=== PATIENT | female | born 1980 | race Caucasian/White ===

== ENCOUNTER 2019-04-23 15:02 | Inpatient (IN) ==
[2019-04-23 15:45] LABS: BASO# 0.03 X1000 (0.0-0.2); BASO% 0.2 % (0.0-0.8); EOS# 0.05 X1000 (0.0-0.7); EOS% 0.3 % (0.0-10.0); HEMATOCRIT 34.7 % (37.0-47.0); HEMOGLOBIN 11.3 g/dL (12.0-16.0); IMM GRAN# 0.03 X1000 (0.0-0.04); IMM GRAN% 0.2 % (0.0-0.5); LYMPH# 2.31 X1000 (1.2-3.4); LYMPH% 13.1 % (20.5-51.1); MCH 28.8 PG (27-31); MCHC 32.6 g/dL (33-37); MCV 88.5 FL (81-99); MONO# 1.47 X1000 (0.11-0.59); MONO% 8.3 % (1.7-9.3); MPV 9.4 FL (7.4-10.4); NEUT# 13.79 X1000 (1.4-6.5); NEUT% 77.9 % (42.2-75.2); PLT 486 X1000 (130-400); RBC 3.92 XMIL (4.2-5.4); RDW 13.9 % (11.5-14.5); WBC 17.68 X1000 (4.8-10.8)
[2019-04-23] MEDS ORDERED: NS 500 ML IV ONE (15:56)
[2019-04-23] MEDS ORDERED: MORPHINE IV ONE (15:56)
[2019-04-23] MEDS ORDERED: ZOFRAN IV ONE ×2 (15:56→19:47)
[2019-04-23 16:26] LABS: AGAP 14; ALBUMIN 4.6 g/dL (3.5-5.0); ALKALINE PHOSPHATASE 84 U/L (32-104); BUN 10 mg/dL (8-22); CALCIUM 9.3 mg/dL (8.8-10.2); CHLORIDE 101 mmol/L (98-107); COSMO 274; CREATININE 0.9 mg/dL (0.5-0.9); ESTIMATED GFR > 60; GLUCOSE 125 mg/dL (70-104); GOT 17 U/L (10-30); GPT 20 U/L (10-36); LIPASE 39 U/L (13-60); POTASSIUM 3.7 mmol/L (3.5-5.1); SODIUM 137 mmol/L (136-145); TCO2 23 mmol/L (25-35); TOTAL PROTEIN 7.5 g/dL (6.3-8.3)
[2019-04-23 16:33] LABS: BILIRUBIN URINE NEGATIVE (NEGATIVE); BLOOD URINE NEGATIVE (NEGATIVE); CLARITY CLEAR (CLEAR); COLOR YELLOW; GLUCOSE URINE NEGATIVE (NEGATIVE); KETONE URINE NEGATIVE (NEGATIVE); LEUKOCYTES URINE TRACE (NEGATIVE); NITRITE URINE NEGATIVE (NEGATIVE); PH URINE 6.5; PROTEIN URINE TRACE mg/dL (NEGATIVE); SP GRAVITY URINE 1.015; UROBILINOGEN URINE NORMAL
[2019-04-23 16:37] LABS: URINE EPITHELIAL CELLS >10 /HPF (<10)
[2019-04-23 16:38] LABS: URINE WBC <10 /HPF (<10)
[2019-04-23 16:39] LABS: URINE BACTERIA 1+ /HFP; URINE CAST NONE SEEN /LPF; URINE CRYSTAL NONE SEEN /HPF; URINE SOURCE CLEAN CATCH; URINE YEAST NONE SEEN /HPF
--- NOTE | 2019-04-23 16:51 | Diag Imaging Result Doc PS360 ---
EXAM: CT ABDOMEN/PELVIS W/O CONTRAST HISTORY: right flank pain TECHNIQUE: Routine without contrast. COMPARISON: None. FINDINGS: Evaluation of the solid visceral organs and bowel is limited by lack of enteric and IV contrast. Lung bases are unremarkable. There is no free air or bowel distention. There is hepatic steatosis. There are cholecystectomy clips. There is a small amount of fluid within the right hepatic space and paracolic gutter. More moderate free fluid is noted within the pelvis. The uterus is surgically absent. Within the midline there is a 4.4 cm mass containing at least one septation. This may represent an enlarged ovary containing a cyst or abscess. There is surrounding free fluid. A normal appendix is identified. There is no urolithiasis or hydronephrosis. Urinary bladder is incompletely distended but grossly unremarkable. Musculoskeletal structures are unremarkable. Aorta is of normal caliber. IMPRESSION: 1.4.5 septated rounded collection in the midline pelvis. Moderate adjacent fluid as well as free abdominal and moderate pelvic fluid. This likely represents an ovarian cyst or mass. Cannot exclude abscess or torsion. Recommend further evaluation with pelvic ultrasound. 2.No urolithiasis. 3.Normal appendix. 4.Status post cholecystectomy. 5.Hepatic steatosis. This report was discussed with Ad on 04/23/2019 at 4:45 PM with read back verification. This exam was performed using automated exposure control, adjustment of mA or kV according to patient size, and/or use of iterative reconstruction technique. Electronically signed by Melodie Hirsch 04/23/2019 4:48 PM
[2019-04-23] MEDS ORDERED: DILAUDID IV ONE ×2 (16:54→19:47)
[2019-04-23] MEDS ORDERED: ZOSYN 3.375 GM in NS 50 ML IV ONE (18:05)
--- NOTE | 2019-04-23 19:18 | PROVIDER DOCUMENTATION ---
This chart was entered by Jojo Glaser Scribe, acting as scribe for Thao Duong MD. HPI-Abdominal Pain/GI Problem - General Source: patient, family - History of Present Illness-ABD Nature of Presenting Problems: 38 yowf presents to the ed with c/o abdominal pain in RUQ and RLQ acute onset yesterday at 1300. pt had nausea, diaphoresis and cramping in abdomen. pt went to walk in clinic and was sent to ed. pain is intermittent sharp in nature and 10/10 Abdominal Pain Onset Location: reports: RUQ Pain Radiation: reports: RLQ Quality of Pain: reports: cramping Severity in ED: reports: severe Onset/Duration: reports: other (yesteray 1300) Timing: reports: intermittent Activities at Onset: reports: light activity Exposure to sick contacts?: No Modifying Factors: worse with: movement, palpation Associated Symptoms: reports: diaphoresis, nausea. denies: back/neck pain, chest pain, diarrhea, fever/chills, vomiting Last BM: last night Dark Stools Present?: reports: none noticed Rectal Bleeding: reports: none # of Diarrhea Episodes: 0 Rectal Pain: reports: none # of Vomiting Episodes: 0 Emesis Description: reports: none Bruising or Bleeding Gums?: No Similar Symptoms Previously?: No Recently seen or treated by another doctor?: No <Thao Duong - Last Filed: 04/23/19 19:17> <Marshall Clement - Last Filed: 04/23/19 19:46> - General Chief Complaint: Abdominal Pain Stated Complaint: SEVERE ABD PAIN Time Seen by Provider: 04/23/19 15:51 Allergies/Adverse Reactions: Patient Allergies Allergy/AdvReac Type Severity Reaction Status Date / Time sulfamethoxazole Allergy RASH Verified 04/08/16 09:36 [From Bactrim] trimethoprim [From Bactrim] Allergy RASH Verified 04/08/16 09:36 Home Medications: Home Medication List Medication Instructions Recorded Confirmed Last Taken Type Citalopram [Celexa] 20 mg PO DAILY 04/30/15 04/08/16 04/30/15 History Cephalexin [Keflex] 500 mg PO BID #14 capsule 04/08/16 Unknown Rx Levothyroxine Sodium [Synthroid] 88 mcg PO DAILY 04/08/16 04/08/16 Unknown H istory Review of Systems - Adult - REVIEW OF SYSTEMS - ADULT Constitutional: reports: no symptoms reported Eyes: reports: no symptoms reported Ears, Nose, Mouth & Throat: reports: no symptoms reported Cardiovascular: denies: chest pain, palpitations Respiratory: denies: shortness of breath, wheezing Gastrointestinal: reports: see HPI, abdominal pain, nausea. denies: diarrhea, vomiting Genitourinary: reports: no symptoms reported Musculoskeletal: denies: back pain, neck pain Integumentary: reports: no symptoms reported Neurological: denies: dizziness/vertigo, headache/migraines Psychiatric: reports: no symptoms reported Endocrine: reports: see HPI, excessive sweating Hematologic/Lymphatic: reports: no symptoms reported Allergic/Immunologic: reports: no symptoms reported All Other Systems: Reviewed and Negative <Thao Duong - Last Filed: 04/23/19 19:17> Past History - Adult - PAST MEDICAL HISTORY-ADULT Review of Records: reports: Nursing Assessment Review, Medications Reviewed Major Childhood Illnesses: reports: denies history Cardiovascular: reports: HTN Respiratory: reports: denies history Gastrointestinal: reports: denies history Obstetrical/Gynecological: reports: denies history Genitourinary: reports: denies history Musculoskeletal: reports: denies history Hand Dominance: Right Handed Neurological: reports: denies history Psychiatric: reports: depression Endocrine/Immune: reports: thyroid disorder Other Conditions: reports: denies history - PRIOR SURGERIES/PROCEDURES Surgical/Procedure History: reports: cholecystectomy, hysterectomy, BTL, tonsillectomy, other (TMJ) - IMMUNIZATION STATUS Childhood Immunizations: See Nurse Assessment Flu Vaccine: See Nurse Assessment - FAMILY HISTORY Family History: reviewed, not pertinent - SOCIAL HISTORY Smoking: denies Substance Use: denies Living Situation: family <Thao Duong - Last Filed: 04/23/19 19:17> Physical Exam-General - PHYSICAL EXAM-ADULT Initial Vital Signs Reviewed: Yes - CONSTITUTIONAL General Appearance: alert, moderate distress, obese, anxious - EYES Eyes: PERRL/EOMI, pink conjunctivae - HEAD, EARS, NOSE, MOUTH & THROAT HENMT: moist mucous membranes, normal ENT inspection - NECK Neck: non-tender, full range of motion, supple, normal inspection - RESPIRATORY Respiratory: chest non-tender, lungs clear, normal breath sounds - CARDIOVASCULAR Cardiovascular: normal peripheral pulses, tachycardia (110) - GASTROINTESTINAL (ABDOMEN) Abdominal Exam: soft, no organomegaly, no pulsatile mass, guarding, tenderness (RUQ and RLQ). negative: distended, rigid, rebound, hernia - LYMPHATIC Lymphatic: no adenopathy - MUSCULOSKELETAL Back Exam: normal inspection, no CVA tenderness, no vertebral tenderness Extremity: normal range of motion, non-tender, normal gait, normal inspection, no pedal edema, no calf tenderness, normal capillary refill - SKIN Integumentary: normal color, normal turgor, warm/dry - NEUROLOGIC Neurologic: grossly normal, no motor/sensory deficits - PSYCHIATRIC Psych/Mental Status: normal mood/affect, normal thought content, normal thought process, oriented x 3 <Thao Duong - Last Filed: 04/23/19 19:17> Progress - PLAN OF CARE/RESULTS Progress/Plan/Lab Results: Vital Signs - 8 hr 04/23/19 15:14 Temperature 98.2 F Pulse Rate 110 H Respiratory Rate 22 Blood Pressure 137/91 O2 Sat by Pulse Oximetry 100 Laboratory Results - last 24 hr 04/23/19 15:33 WBC 17.68 H RBC 3.92 L Hgb 11.3 L Hct 34.7 L MCV 88.5 MCH 28.8 MCHC 32.6 L RDW Std Deviation 13.9 Plt Count 486 H MPV 9.4 Immature Gran % (Auto) 0.2 Neut % (Auto) 77.9 H Lymph % (Auto) 13.1 L [place] % (Auto) 8.3 Eos % (Auto) 0.3 Baso % (Auto) 0.2 Immature Gran # (Auto) 0.03 Neut # (Auto) 13.79 H Lymph # (Auto) 2.31 [place] # (Auto) 1.47 H Eos # (Auto) 0.05 Baso # (Auto) 0.03 Orders Category Date Time Status Saline Loc DIRECTED Care 04/23/19 15:18 Active NPO Diet 04/23/19 15:[address] ABDOMEN/PELVIS W/O CONTRAST [CT] Stat Exams 04/23/19 15:55 Ordered AMYLASE [CHEM] Stat Lab 04/23/19 15:33 Received CBC WITH ELECTRONIC DIFF [HEME] Stat Lab 04/23/19 15:33 Completed COMPREHENSIVE METABOLIC PANEL [CHEM] Stat Lab 04/23/19 15:33 Received LIPASE [CHEM] Stat Lab 04/23/19 15:[address] W/POSS RFLX CULT [URINALYSIS] Stat Lab 04/23/19 15:57 Received 0.9% Sodium Chloride Inj [Ns] 500 ml Med 04/23/19 15:56 Active IV 999 mls/hr Morphine Med 04/23/19 15:56 Discontinued 4 mg IV NOW ONE Ondansetron [Zofran] Med 04/23/19 15:56 Discontinued 4 mg IV NOW ONE Result Diagrams: 04/23/19 15:33 04/23/19 15:33 - CHANGE OF SHIFT REPORT (ED Provider) 1 Report Given and Care Transferred to:: [facility] Time of Transfer: 19:00 Items Pending: Other (ultrasound pending, possible admission for pain control, adnexal mass) <Thao Duong - Last Filed: 04/23/19 19:17> - PLAN OF CARE/RESULTS Progress/Plan/Lab Results: Vital Signs - 8 hr 04/23/19 15:14 Temperature 98.2 F Pulse Rate 110 H Respiratory Rate 22 Blood Pressure 137/91 O2 Sat by Pulse Oximetry 100 Laboratory Results - last 24 hr 04/23/19 04/23/19 04/23/19 15:33 15:33 15:33 WBC 17.68 H RBC 3.92 L Hgb 11.3 L Hct 34.7 L MCV 88.5 MCH 28.8 MCHC 32.6 L RDW Std Deviation 13.9 Plt Count 486 H MPV 9.4 Immature Gran % (Auto) 0.2 Neut % (Auto) 77.9 H Lymph % (Auto) 13.1 L [place] % (Auto) 8.3 Eos % (Auto) 0.3 Baso % (Auto) 0.2 Immature Gran # (Auto) 0.03 Neut # (Auto) 13.79 H Lymph # (Auto) 2.31 [place] # (Auto) 1.47 H Eos # (Auto) 0.05 Baso # (Auto) 0.03 Sodium 137 Potassium 3.7 Chloride 101 Carbon Dioxide 23 L Anion Gap 14 BUN 10 Creatinine 0.9 Estimated GFR/1.73 m2 > 60 BUN/Creatinine Ratio 11 Glucose 125 H Calculated Osmolality 274 Calcium 9.3 Total Bilirubin 0.40 AST 17 ALT 20 Alkaline Phosphatase 84 Total Protein 7.5 Albumin 4.6 Globulin 3.0 Albumin/Globulin Ratio 2.0 Amylase 80 Lipase 39 Urine Source Urine Color Urine Clarity Urine pH Ur Specific [place] Urine Protein Urine Ketones Urine Blood Urine Nitrite Urine Bilirubin Urine Urobilinogen Urine Microscopic RBC Urine WBC Urine Microscopic WBC Ur Epithelial Cells Urine Crystals Urine Bacteria Urine Casts Urine Yeast Urine Glucose 04/23/19 15:57 WBC RBC Hgb Hct MCV MCH MCHC RDW Std Deviation Plt Count MPV Immature Gran % (Auto) Neut % (Auto) Lymph % (Auto) [place] % (Auto) Eos % (Auto) Baso % (Auto) Immature Gran # (Auto) Neut # (Auto) Lymph # (Auto) [place] # (Auto) Eos # (Auto) Baso # (Auto) Sodium Potassium Chloride Carbon Dioxide Anion Gap BUN Creatinine Estimated GFR/1.73 m2 BUN/Creatinine Ratio Glucose Calculated Osmolality Calcium Total Bilirubin AST ALT Alkaline Phosphatase Total Protein Albumin Globulin Albumin/Globulin Ratio Amylase Lipase Urine Source CLEAN CATCH Urine Color YELLOW Urine Clarity CLEAR Urine pH 6.5 Ur Specific [place] 1.015 Urine Protein TRACE A Urine Ketones NEGATIVE Urine Blood NEGATIVE Urine Nitrite NEGATIVE Urine Bilirubin NEGATIVE Urine Urobilinogen NORMAL Urine Microscopic RBC Not Reportable Urine WBC TRACE A Urine Microscopic WBC <10 Ur Epithelial Cells >10 A Urine Crystals NONE SEEN Urine Bacteria 1+ Urine Casts NONE SEEN Urine Yeast NONE SEEN Urine Glucose NEGATIVE Orders Category Date Time Status Saline Loc DIRECTED Care 04/23/19 15:18 Active NPO Diet 04/23/19 15:[address] ABDOMEN/PELVIS W/O CONTRAST [CT] Stat Exams 04/23/19 15:55 Completed US PELVIC NON-OB COMPLETE [US] Stat Exams 04/23/19 16:47 Completed AMYLASE [CHEM] Stat Lab 04/23/19 15:33 Completed CBC WITH ELECTRONIC DIFF [HEME] Stat Lab 04/23/19 15:33 Completed COMPREHENSIVE METABOLIC PANEL [CHEM] Stat Lab 04/23/19 15:33 Completed LIPASE [CHEM] Stat Lab 04/23/19 15:[address] W/POSS RFLX CULT [URINALYSIS] Stat Lab 04/23/19 15:57 Completed URINE CULTURE [RM] Routine Lab 04/23/19 16:39 Ordered 0.9% Sodium Chloride Inj [Ns] 500 ml Med 04/23/19 15:56 Discontinued IV 999 mls/hr Hydromorphone [Dilaudid] Med 04/23/19 16:54 Discontinued 1 mg IV NOW ONE Morphine Med 04/23/19 15:56 Discontinued 4 mg IV NOW ONE Ondansetron [Zofran] Med 04/23/19 15:56 Discontinued 4 mg IV NOW ONE Piperacillin/Tazobactam [Zosyn] 3.375 gm Med 04/23/19 18:05 Discontinued 0.9% Sodium Chloride Inj [Ns] 50 ml IV NOW Result Diagrams: 04/23/19 15:33 04/23/19 15:33 - CONSULTS/PCP/HOSPITALIST Notification #1 *Consult/PCP/Hospitalist*: Dr Zurita Time Discussed: 19:45 Consult Disposition: Will see in ED, Admit <Marshall Clement - Last Filed: 04/23/19 19:46> Departure <Thao Duong - Last Filed: 04/23/19 19:17> - Departure Date of Disposition Decision: 04/23/19 Time of Disposition Decision: 19:45 Certified Medical Emergency: Emergent - Critical Care Note This patient required my direct & personal management of CC.: Yes Total Time (mins): 35 Critical Care Statement: This patient required my direct personal management to treat or rule out processes, the absence of which, could potentiallly result in sudden, clinically significant life or limb threatening deterioration. <Marshall Clement - Last Filed: 04/23/19 19:46> - Departure DIAGNOSIS: Ovarian torsion Disposition: ADMITTED INPATIENT 09 Condition: Fair Referrals and Follow-Ups: Marcel Abrams MD [Primary Care Provider] - Attestation - Physician/ SARAI Attestation Patient care was provided by Advanced Practice Provider:: No The physician spent face to face time with patient:: Yes Advanced Practice Provider documentation review:: Supervising physician onsite and consulted in the evaluation and care of this patient. The physician did have a face to face encounter with the patient. <Thao Duong - Last Filed: 04/23/19 19:17> - Physician/ SARAI Attestation Patient care was provided by Advanced Practice Provider:: No The physician spent face to face time with patient:: Yes Advanced Practice Provider documentation review:: Supervising physician onsite and consulted in the evaluation and care of this patient. The physician did have a face to face encounter with the patient. <Marshall Clement - Last Filed: 04/23/19 19:46> This chart was documented by the indicated scribe, (Jojo Glaser Scribe) and accurately reflects the services I performed and decisions made by me, Thao Duong MD, as attested by the provider's signature.
--- NOTE | 2019-04-23 19:23 | Diag Imaging Result Doc PS360 ---
EXAM: US PELVIC NON-OB COMPLETE INDICATION: rule out ovarian torsion TECHNIQUE: COMPARISON: 12/14/2014 FINDINGS: There has been a prior hysterectomy and left oophorectomy. There is a large cyst associated with the right ovary measuring up to 4.8 cm with internal septation. The right ovary is enlarged measuring 9.2 x 8.3 x 6.0 cm. There is no appreciable Doppler flow associated with the right ovary, which is suspicious for ovarian torsion. There is a small amount of free fluid in the pelvis. IMPRESSION: Enlarged right ovary with no appreciable Doppler flow and a large ovarian cyst, which is worrisome for ovarian torsion. Electronically signed by Rodrigo Marroquin 04/23/2019 7:20 PM
[2019-04-23] MEDS: KEFZOL 2 GM/D5W 2 GM/50 ML IVPB IV ONE (20:51)
[2019-04-23] MEDS ORDERED: DIPRIVAN 1% ONE (21:20)
[2019-04-23] MEDS ORDERED: KEFZOL 2 GM/D5W 2 GM/50 ML IVPB ONE (21:23)
[2019-04-23] MEDS ORDERED: KEFZOL 1 GM/D5W 0 GM/0 ML IVPB ONE (21:23)
[2019-04-23] MEDS ORDERED: LR 1,000 ML ONE (21:23)
[2019-04-23] MEDS ORDERED: TORADOL ONE (21:29)
[2019-04-23] MEDS ORDERED: ZOFRAN ONE (21:29)
[2019-04-23] MEDS ORDERED: XYLOCAINE-MPF 2% ONE (21:29)
[2019-04-23] MEDS ORDERED: DECADRON ONE (21:29)
[2019-04-23] MEDS ORDERED: ROBINUL ONE ×3 (21:30→22:28)
[2019-04-23] MEDS ORDERED: SODIUM CHLORIDE 0.9% 10 ML ONE (21:37)
[2019-04-23] MEDS ORDERED: EPHEDRINE ONE (21:37)
[2019-04-23] MEDS ORDERED: NEO-SYNEPHRINE ONE (21:40)
[2019-04-23] MEDS ORDERED: MORPHINE ONE ×2 (22:01→22:24)
[2019-04-23] MEDS ORDERED: NEOSTIGMINE ONE (22:28)
[2019-04-23] MEDS ORDERED: ZOFRAN IV PRN (23:03)
[2019-04-23] MEDS ORDERED: MORPHINE IM PRN (23:03)
[2019-04-23] MEDS ORDERED: PHENERGAN IM PRN (23:03)
[2019-04-23] MEDS ORDERED: NORCO-10 PO PRN (23:03)
[2019-04-23] MEDS ORDERED: NORCO-5 PO PRN (23:03)
[2019-04-23] MEDS ORDERED: MOTRIN PO PRN (23:03)
[2019-04-23 23:32] LABS: BILIRUBIN URINE NEGATIVE (NEGATIVE); BLOOD URINE NEGATIVE (NEGATIVE); GLUCOSE URINE NEGATIVE (NEGATIVE); KETONE URINE TRACE mg/dL (NEGATIVE); LEUKOCYTES URINE NEGATIVE (NEGATIVE); NITRITE URINE NEGATIVE (NEGATIVE); PROTEIN URINE NEGATIVE (NEGATIVE); URINE SOURCE CATH; UROBILINOGEN URINE NORMAL
[2019-04-23 23:33] LABS: CLARITY CLEAR (CLEAR); COLOR YELLOW
[2019-04-23] MEDS: LR 1,000 ML IV SCH (23:40)
[2019-04-23 23:48] LABS: URINE BACTERIA NEGATIVE /HFP; URINE EPITHELIAL CELLS <10 /HPF (<10); URINE RBC <10 /HPF (<10); URINE WBC <10 /HPF (<10)
--- NOTE | 2019-04-23 23:54 | PROVIDER PROGRESS NOTE ---
Progress Note OPERATIVE REPORT Preoperative diagnosis: 1. Right ovarian torsion 2. Abdominal pain Post-operative diagnosis: same Procedure: mini-lapartomy/ Right salpingo-oophorectomy Attending: Sadie Zurita Assistants: none Anesthesia: General Findings: ruptured right ovarian hemorrhagic cyst, right ovarian torsion, evidence of prior hysterectomy/LSO, EBL: 100cc Complications: none Indications for the procedure: The pt is a 38 your old who presented to the ED with abdominal pain for 1 day. She had an US that showed a large ovarian cyst 9.2x8.3x6cm. There was no evidence of doppler flow to the ovary, which was suspicious for an ovarian torsion. She is consented for a mini- laparotomy/RSO. She was given the risks, benefits, and alternatives to the procedure to include but not limited to bleeding, infection, surgical menopause, injury to other organs, and risks of anesthesia. She understands and agrees to proceed. Description of Procedure: The patient was taken to the OR where her general anesthesia was found to be adequate. She was placed in the supine position. She was prepped and draped in the usual fashion. A Pfannenstiel skin incision was made with the scapel, and taken down the the underlying fascia with the Bovie. The fascia was excised in the midline and extended bilaterally, first to the patient's right, then the patient's left. The superior aspect of the fascia was grasped with Samantha clamps x2, tented up, and the rectus muscles dissected off with the Hampton scissors. In a similar fashion, the inferior aspect of the fascia was grasped with Samantha clamps, tented up, and the rectus muscles dissected off with the Hampton scissors. The muscles were divided in the midline. The peritoneum was identified, grasped with Hemostats x2, and entred sharply with the Metzenbaum scissors. There was some free fluid mixed with blood in the pelvis. The right ovarian cyst was noted to be ruptured and there was evidence of a torsion with 2 twists around the IP ligament. The O'Alexy Hernandez abdominal retractor was placed into the abdomen with its attachments, and the bowel was gently packed away with moist laparotomy sponges. The IP ligament was untwisted. The ligament was clamped with Babs clamps x2. The ovary and tube were transected and removed. The IP ligament was double suture ligated. Good hemostasis was noted. Copius irrigation was performed. The surgical site was hemostatic. The right ureter was palpated and was intact. The abdominal retractor and attachments were removed. The laparotomy sponges were removed. The peritoneum was closed with a 2.0 Chromic in a running fashion. Copius irrigation was performed and any small bleeders were cauterized with the Bovie. The fascia was closed with a 0 Vicryl in a running fashion. The subcutaneous space was copiusly irrigated. Any small bleeders were cauterized with the Bovie. The subcutaneous space was closed with a 3.0 Vicryl suture in a running fashion. The skin was closed with a 4.0 Biosyn in a subcuticular fashion. All sponge, lap, and needle counts were correct x2. The patient tolerated the procedure well and was returned the recovery room in stable condition.
[2019-04-24] MEDS ORDERED: SODIUM CHLORIDE 0.9% INJ PRN (01:27)
[2019-04-24] MEDS ORDERED: PHENERGAN IV PRN (01:27)
[2019-04-24] MEDS ORDERED: DILAUDID IV PRN (01:30)
[2019-04-24] MEDS ORDERED: BENADRYL IV PRN (01:31)
[2019-04-24] MEDS: KEFZOL 2 GM/D5W 2 GM/50 ML IVPB IV ONE (03:59)
[2019-04-24] MEDS: TORADOL IV SCH ×4 (05:19→22:05)
[2019-04-24 07:16] LABS: BASO# 0.01 X1000 (0.0-0.2); BASO% 0.1 % (0.0-0.8); EOS# 0.01 X1000 (0.0-0.7); EOS% 0.1 % (0.0-10.0); HEMATOCRIT 33.6 % (37.0-47.0); HEMOGLOBIN 10.3 g/dL (12.0-16.0); IMM GRAN# 0.03 X1000 (0.0-0.04); IMM GRAN% 0.2 % (0.0-0.5); LYMPH# 0.83 X1000 (1.2-3.4); LYMPH% 4.8 % (20.5-51.1); MCH 28.1 PG (27-31); MCHC 30.7 g/dL (33-37); MCV 91.6 FL (81-99); MONO# 1.26 X1000 (0.11-0.59); MONO% 7.2 % (1.7-9.3); NEUT# 15.29 X1000 (1.4-6.5); NEUT% 87.6 % (42.2-75.2); PLT 433 X1000 (130-400); RBC 3.67 XMIL (4.2-5.4); RDW 14.3 % (11.5-14.5); WBC 17.43 X1000 (4.8-10.8)
[2019-04-24 07:38] LABS: AGAP 10; ALBUMIN 4.1 g/dL (3.5-5.0); ALKALINE PHOSPHATASE 122 U/L (32-104); BUN 12 mg/dL (8-22); CALCIUM 9.4 mg/dL (8.8-10.2); CHLORIDE 101 mmol/L (98-107); COSMO 279; ESTIMATED GFR > 60; GLUCOSE 160 mg/dL (70-104); GOT 418 U/L (10-30); GPT 267 U/L (10-36); POTASSIUM 4.8 mmol/L (3.5-5.1); SODIUM 138 mmol/L (136-145); TCO2 27 mmol/L (25-35); TOTAL PROTEIN 6.6 g/dL (6.3-8.3)
[2019-04-24] MEDS: PERIDEX MT SCH ×2 (08:04→20:52)
[2019-04-24] MEDS: COLACE PO SCH ×2 (08:04→22:05)
[2019-04-24] MEDS: LR 1,000 ML IV SCH ×2 (08:04→16:32)
[2019-04-24 08:05] LABS: ANISOCYTOSIS 1+; LYMPHS 15 % (21-51); MONO 6 % (1-9); SEGS 79 % (42-75)
--- NOTE | 2019-04-24 09:45 | OB/GYN PROGRESS NOTE ---
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 Progress Note: Vital Signs - 24 hr 04/23/19 15:14 04/23/19 20:07 04/23/19 21:00 Temperature 98.2 F 97.1 F L Pulse Rate 110 H 71 77 Respiratory Rate 22 16 Blood Pressure 137/91 123/82 112/64 Blood Pressure [Left Arm] O2 Sat by Pulse Oximetry 100 98 97 04/23/19 23:00 04/23/19 23:05 04/23/19 23:07 Temperature 97.7 F Pulse Rate 72 77 Respiratory Rate 16 16 Blood Pressure 112/64 112/64 Blood Pressure [Left Arm] 107/66 O2 Sat by Pulse Oximetry 96 04/23/19 23:10 04/23/19 23:20 04/23/19 23:40 Temperature 98.0 F Pulse Rate 72 78 90 Respiratory Rate 16 16 18 Blood Pressure 115/59 Blood Pressure [Left Arm] 110/72 94/62 O2 Sat by Pulse Oximetry 97 94 L 98 04/23/19 23:47 04/23/19 23:49 04/24/19 00:00 Temperature 98.0 F Pulse Rate 84 89 74 Respiratory Rate 18 18 Blood Pressure 110/51 115/59 108/59 Blood Pressure [Left Arm] O2 Sat by Pulse Oximetry 99 98 100 04/24/19 00:15 04/24/19 00:30 04/24/19 01:00 Temperature Pulse Rate 82 92 H 84 Respiratory Rate 16 16 16 Blood Pressure 108/59 112/61 112/62 Blood Pressure [Left Arm] O2 Sat by Pulse Oximetry 100 100 100 04/24/19 01:30 04/24/19 02:00 04/24/19 03:00 Temperature Pulse Rate 79 82 76 Respiratory Rate 16 16 16 Blood Pressure 111/59 119/61 112/57 Blood Pressure [Left Arm] O2 Sat by Pulse Oximetry 100 100 100 04/24/19 04:00 04/24/19 04:45 04/24/19 05:00 Temperature 97.7 F Pulse Rate 85 84 Respiratory Rate 16 16 Blood Pressure 111/64 125/56 Blood Pressure [Left Arm] O2 Sat by Pulse Oximetry 100 98 100 04/24/19 07:44 04/24/19 07:50 Temperature 98 F Pulse Rate 72 68 Respiratory Rate 18 14 Blood Pressure 103/55 Blood Pressure [Left Arm] O2 Sat by Pulse Oximetry 96 100 Laboratory Results - last 24 hr 04/23/19 04/23/19 04/23/19 15:33 15:33 15:33 WBC 17.68 H RBC 3.92 L Hgb 11.3 L Hct 34.7 L MCV 88.5 MCH 28.8 MCHC 32.6 L RDW Std Deviation 13.9 Plt Count 486 H MPV 9.4 Immature Gran % (Auto) 0.2 Neut % (Auto) 77.9 H Lymph % (Auto) 13.1 L [place] % (Auto) 8.3 Eos % (Auto) 0.3 Baso % (Auto) 0.2 Immature Gran # (Auto) 0.03 Neut # (Auto) 13.79 H Lymph # (Auto) 2.31 [place] # (Auto) 1.47 H Eos # (Auto) 0.05 Baso # (Auto) 0.03 Segmented Neutrophils Lymphocytes Monocytes Anisocytosis Sodium 137 Potassium 3.7 Chloride 101 Carbon Dioxide 23 L Anion Gap 14 BUN 10 Creatinine 0.9 Estimated GFR/1.73 m2 > 60 BUN/Creatinine Ratio 11 Glucose 125 H POC Glucose Calculated Osmolality 274 Calcium 9.3 Total Bilirubin 0.40 AST 17 ALT 20 Alkaline Phosphatase 84 Total Protein 7.5 Albumin 4.6 Globulin 3.0 Albumin/Globulin Ratio 2.0 Amylase 80 Lipase 39 Urine Source Urine Color Urine Clarity Urine pH Ur Specific [place] Urine Protein Urine Ketones Urine Blood Urine Nitrite Urine Bilirubin Urine Urobilinogen Urine Microscopic RBC Urine WBC Urine Microscopic WBC Ur Epithelial Cells Urine Crystals Urine Bacteria Urine Casts Urine Yeast Urine Glucose 04/23/19 04/23/19 04/24/19 15:57 23:20 05:19 WBC 17.43 H RBC 3.67 L Hgb 10.3 L Hct 33.6 L MCV 91.6 MCH 28.1 MCHC 30.7 L RDW Std Deviation 14.3 Plt Count 433 H MPV 10.0 Immature Gran % (Auto) 0.2 Neut % (Auto) 87.6 H Lymph % (Auto) 4.8 L [place] % (Auto) 7.2 Eos % (Auto) 0.1 Baso % (Auto) 0.1 Immature Gran # (Auto) 0.03 Neut # (Auto) 15.29 H Lymph # (Auto) 0.83 L [place] # (Auto) 1.26 H Eos # (Auto) 0.01 Baso # (Auto) 0.01 Segmented Neutrophils 79 H Lymphocytes 15 L Monocytes 6 Anisocytosis 1+ Sodium Potassium Chloride Carbon Dioxide Anion Gap BUN Creatinine Estimated GFR/1.73 m2 BUN/Creatinine Ratio Glucose POC Glucose Calculated Osmolality Calcium Total Bilirubin AST ALT Alkaline Phosphatase Total Protein Albumin Globulin Albumin/Globulin Ratio Amylase Lipase Urine Source CLEAN CATCH CATH Urine Color YELLOW YELLOW Urine Clarity CLEAR CLEAR Urine pH 6.5 5.0 Ur Specific [place] 1.015 1.020 Urine Protein TRACE A NEGATIVE Urine Ketones NEGATIVE TRACE Urine Blood NEGATIVE NEGATIVE Urine Nitrite NEGATIVE NEGATIVE Urine Bilirubin NEGATIVE NEGATIVE Urine Urobilinogen NORMAL NORMAL Urine Microscopic RBC Not Reportable <10 Urine WBC TRACE A NEGATIVE Urine Microscopic WBC <10 <10 Ur Epithelial Cells >10 A <10 Urine Crystals NONE SEEN Urine Bacteria 1+ NEGATIVE Urine Casts NONE SEEN Urine Yeast NONE SEEN Urine Glucose NEGATIVE NEGATIVE 04/24/19 04/24/19 05:19 07:58 WBC RBC Hgb Hct MCV MCH MCHC RDW Std Deviation Plt Count MPV Immature Gran % (Auto) Neut % (Auto) Lymph % (Auto) [place] % (Auto) Eos % (Auto) Baso % (Auto) Immature Gran # (Auto) Neut # (Auto) Lymph # (Auto) [place] # (Auto) Eos # (Auto) Baso # (Auto) Segmented Neutrophils Lymphocytes Monocytes Anisocytosis Sodium 138 Potassium 4.8 D Chloride 101 Carbon Dioxide 27 Anion Gap 10 BUN 12 Creatinine 1.0 H Estimated GFR/1.73 m2 > 60 BUN/Creatinine Ratio 12 Glucose 160 H POC Glucose 154 H Calculated Osmolality 279 Calcium 9.4 Total Bilirubin 1.70 H AST 418 H ALT 267 H Alkaline Phosphatase 122 H Total Protein 6.6 Albumin 4.1 Globulin 3.0 Albumin/Globulin Ratio 2.0 Amylase Lipase Urine Source Urine Color Urine Clarity Urine pH Ur Specific [place] Urine Protein Urine Ketones Urine Blood Urine Nitrite Urine Bilirubin Urine Urobilinogen Urine Microscopic RBC Urine WBC Urine Microscopic WBC Ur Epithelial Cells Urine Crystals Urine Bacteria Urine Casts Urine Yeast Urine Glucose The pt c/o soreness. Her pain is much better than yesterday. no N/V no flatus no BM yet. Her evans was taken out this morning but she has not voided yet. O: Vitals as above Gen: AAOx3 NAD CV: RRR no g/m/r Lungs: CTAB no w/r/r Abd: +BS soft john tender around her incision. incision c/d/i Ext: no c/c/e SCDs in place Labs elevated LFTs A: POD#1 s/o ex-lap/RSO elevated LFTs CHTN BP stable Obesity hypothroidism P: Recheck LFTs Hepatitis panel Ambulate TID Regular diet as tolerated
[2019-04-24 10:30] LABS: ALBUMIN 3.8 g/dL (3.5-5.0); DIRECT BILIRUBIN 0.6 mg/dL (0.00-0.20); TOTAL BILIRUBIN 1.9 mg/dL (0.20-1.00); TOTAL PROTEIN 6.6 g/dL (6.3-8.3)
--- NOTE | 2019-04-24 19:38 | OB/GYN PROGRESS NOTE ---
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 Progress Note: Vital Signs - 24 hr 04/23/19 20:07 04/23/19 21:00 04/23/19 23:00 Temperature 97.1 F L Pulse Rate 71 77 72 Respiratory Rate 16 16 Blood Pressure 123/82 112/64 Blood Pressure [Left Arm] 107/66 O2 Sat by Pulse Oximetry 98 97 96 04/23/19 23:05 04/23/19 23:07 04/23/19 23:10 Temperature 97.7 F Pulse Rate 77 72 Respiratory Rate 16 16 Blood Pressure 112/64 112/64 Blood Pressure [Left Arm] 110/72 O2 Sat by Pulse Oximetry 97 04/23/19 23:20 04/23/19 23:40 04/23/19 23:47 Temperature 98.0 F 98.0 F Pulse Rate 78 90 84 Respiratory Rate 16 18 18 Blood Pressure 115/59 110/51 Blood Pressure [Left Arm] 94/62 O2 Sat by Pulse Oximetry 94 L 98 99 04/23/19 23:49 04/24/19 00:00 04/24/19 00:15 Temperature Pulse Rate 89 74 82 Respiratory Rate 18 16 Blood Pressure 115/59 108/59 108/59 Blood Pressure [Left Arm] O2 Sat by Pulse Oximetry 98 100 100 04/24/19 00:30 04/24/19 01:00 04/24/19 01:30 Temperature Pulse Rate 92 H 84 79 Respiratory Rate 16 16 16 Blood Pressure 112/61 112/62 111/59 Blood Pressure [Left Arm] O2 Sat by Pulse Oximetry 100 100 100 04/24/19 02:00 04/24/19 03:00 04/24/19 04:00 Temperature 97.7 F Pulse Rate 82 76 85 Respiratory Rate 16 16 16 Blood Pressure 119/61 112/57 111/64 Blood Pressure [Left Arm] O2 Sat by Pulse Oximetry 100 100 100 04/24/19 04:45 04/24/19 05:00 04/24/19 07:44 Temperature 98 F Pulse Rate 84 72 Respiratory Rate 16 18 Blood Pressure 125/56 103/55 Blood Pressure [Left Arm] O2 Sat by Pulse Oximetry 98 100 96 04/24/19 07:50 04/24/19 13:00 04/24/19 17:00 Temperature 98 F 98.8 F Pulse Rate 68 74 80 Respiratory Rate 14 18 18 Blood Pressure 110/57 115/65 Blood Pressure [Left Arm] O2 Sat by Pulse Oximetry 100 100 100 04/24/19 19:12 Temperature Pulse Rate Respiratory Rate Blood Pressure Blood Pressure [Left Arm] O2 Sat by Pulse Oximetry 100 Laboratory Results - last 24 hr 04/23/19 04/24/19 04/24/19 23:20 05:19 05:19 WBC 17.43 H RBC 3.67 L Hgb 10.3 L Hct 33.6 L MCV 91.6 MCH 28.1 MCHC 30.7 L RDW Std Deviation 14.3 Plt Count 433 H MPV 10.0 Immature Gran % (Auto) 0.2 Neut % (Auto) 87.6 H Lymph % (Auto) 4.8 L [place] % (Auto) 7.2 Eos % (Auto) 0.1 Baso % (Auto) 0.1 Immature Gran # (Auto) 0.03 Neut # (Auto) 15.29 H Lymph # (Auto) 0.83 L [place] # (Auto) 1.26 H Eos # (Auto) 0.01 Baso # (Auto) 0.01 Segmented Neutrophils 79 H Lymphocytes 15 L Monocytes 6 Anisocytosis 1+ Sodium 138 Potassium 4.8 D Chloride 101 Carbon Dioxide 27 Anion Gap 10 BUN 12 Creatinine 1.0 H Estimated GFR/1.73 m2 > 60 BUN/Creatinine Ratio 12 Glucose 160 H POC Glucose Calculated Osmolality 279 Calcium 9.4 Total Bilirubin 1.70 H Direct Bilirubin AST 418 H ALT 267 H Alkaline Phosphatase 122 H Total Protein 6.6 Albumin 4.1 Globulin 3.0 Albumin/Globulin Ratio 2.0 Urine Source CATH Urine Color YELLOW Urine Clarity CLEAR Urine pH 5.0 Ur Specific [place] 1.020 Urine Protein NEGATIVE Urine Ketones TRACE Urine Blood NEGATIVE Urine Nitrite NEGATIVE Urine Bilirubin NEGATIVE Urine Urobilinogen NORMAL Urine Microscopic RBC <10 Urine WBC NEGATIVE Urine Microscopic WBC <10 Ur Epithelial Cells <10 Urine Bacteria NEGATIVE Urine Glucose NEGATIVE 04/24/19 04/24/19 07:58 09:55 WBC RBC Hgb Hct MCV MCH MCHC RDW Std Deviation Plt Count MPV Immature Gran % (Auto) Neut % (Auto) Lymph % (Auto) [place] % (Auto) Eos % (Auto) Baso % (Auto) Immature Gran # (Auto) Neut # (Auto) Lymph # (Auto) [place] # (Auto) Eos # (Auto) Baso # (Auto) Segmented Neutrophils Lymphocytes Monocytes Anisocytosis Sodium Potassium Chloride Carbon Dioxide Anion Gap BUN Creatinine Estimated GFR/1.73 m2 BUN/Creatinine Ratio Glucose POC Glucose 154 H Calculated Osmolality Calcium Total Bilirubin 1.90 H Direct Bilirubin 0.60 H AST 329 H ALT 246 H Alkaline Phosphatase 112 H Total Protein 6.6 Albumin 3.8 Globulin 3.0 Albumin/Globulin Ratio 1.0 Urine Source Urine Color Urine Clarity Urine pH Ur Specific [place] Urine Protein Urine Ketones Urine Blood Urine Nitrite Urine Bilirubin Urine Urobilinogen Urine Microscopic RBC Urine WBC Urine Microscopic WBC Ur Epithelial Cells Urine Bacteria Urine Glucose Pt doing well. Pain is controlled. She is ambulating in her room. She is going to walk in the halls this evening. voiding w/o difficulty no flatus yet no BM. Will check CBC in the AM Possible D/C home in the AM
[2019-04-24 19:46] LABS: ALBUMIN 3.7 g/dL (3.5-5.0); ALKALINE PHOSPHATASE 101 U/L (32-104); DIRECT BILIRUBIN < 0.20 mg/dL (0.00-0.20); GOT 156 U/L (10-30); GPT 181 U/L (10-36); TOTAL PROTEIN 6.4 g/dL (6.3-8.3)
[2019-04-24] MEDS: PERCOCET-10 PO PRN (20:52)
[2019-04-24] MEDS: MYLICON PO PRN (20:56)
[2019-04-25] MEDS: TORADOL IV SCH (00:42)
[2019-04-25] MEDS: LR 1,000 ML IV SCH (01:21)
[2019-04-25] MEDS: PERCOCET-10 PO PRN (04:58)
[2019-04-25] MEDS: MYLICON PO PRN (04:58)
[2019-04-25 06:12] LABS: BASO# 0.01 X1000 (0.0-0.2); BASO% 0.1 % (0.0-0.8); EOS# 0.05 X1000 (0.0-0.7); EOS% 0.5 % (0.0-10.0); HEMATOCRIT 25.8 % (37.0-47.0); HEMOGLOBIN 7.9 g/dL (12.0-16.0); IMM GRAN# 0.02 X1000 (0.0-0.04); IMM GRAN% 0.2 % (0.0-0.5); LYMPH# 2.44 X1000 (1.2-3.4); LYMPH% 24.7 % (20.5-51.1); MCHC 30.6 g/dL (33-37); MCV 91.5 FL (81-99); MONO# 0.79 X1000 (0.11-0.59); MPV 9.6 FL (7.4-10.4); NEUT# 6.55 X1000 (1.4-6.5); NEUT% 66.5 % (42.2-75.2); PLT 287 X1000 (130-400); RBC 2.82 XMIL (4.2-5.4); RDW 14.4 % (11.5-14.5); WBC 9.86 X1000 (4.8-10.8)
[2019-04-25] MEDS ORDERED: FERROUS SULFATE PO SCH (09:00)
[2019-04-25] MEDS: COLACE PO SCH (09:08)
[2019-04-25] MEDS: PERIDEX MT SCH (09:12)
[2019-04-25 09:44] LABS: HEPATITIS PROFILE ACUTE SEE COMMENTS
[2019-04-25 11:03] VITALS: BP 120/57
--- NOTE | 2019-04-26 08:24 | DISCHARGE SUMMARY ---
ADMISSION DATE: 04/23/2019 DISCHARGE DATE: 04/25/2019 ADMISSION DIAGNOSIS: Abdominal pain with a possible right ovarian torsion PROCEDURES: Exploratory laparotomy with right salpingo-oophorectomy for torsed right ovary. BRIEF HISTORY: Patient is a 38-year-old white female, who presents to the emergency department with complaints of abdominal pain in right upper quadrant and right lower quadrant with the acute onset on 04/22/2019. The patient has nausea, diaphoresis, and cramping. She went to a walk-in clinic and was sent to the emergency room. Pain is intermittent and sharp in nature, and she reports a 10/10. REVIEW OF SYSTEMS: Unremarkable. PAST MEDICAL HISTORY: Hypertension, thyroid disorder and depression. PAST SURGICAL HISTORY: Significant for cholecystectomy and hysterectomy, bilateral tubal ligation, tonsillectomy and TMJ. FAMILY HISTORY: Not reviewed and not pertinent. SOCIAL HISTORY: Tobacco use none. PHYSICAL EXAMINATION: General Appearance: Alert in moderate distress. Obese. Anxious. HEENT: Eyes: Pupils equal, round, and react light and accommodation. Extraocular movements intact. Neck: Supple. No thyromegaly. Lungs: Clear to auscultation. Heart: Regular rate and rhythm. Abdomen: The patient had guarding and tenderness. Skin: Normal turgor. Warm and dry. Normal color. Neurologic: Grossly normal. Vital Signs: Temperature 98.2 degrees, pulse 110 respirations 22, and blood pressure 137/91. LABORATORY STUDIES: White blood cell count was 17.68, hemoglobin 11.3, hematocrit 34.7, and platelet count 486,000. Pelvic ultrasound was performed, and this showed an enlarged right ovary with no appreciable Doppler flow and a large ovarian cyst. ASSESSMENT AND PLAN: Abdominal pain with possibility of right torsed ovary. The patient was seen by Dr. Zurita, and also scheduled for surgery that evening. Mini laparotomy was performed and excision of right torsed ovary was performed. The patient's postoperative course, she had slow return of bowel activity and became ambulatory. She was advanced on her diet on postop day 2, and was discussed with the patient that when she had positive flatus that she could be discharged home since she had stable vital signs and was tolerating everything with no sign of infection. DISCHARGE PLANS: Patient will be discharged home after a positive flatus. She is to follow up with Dr. Ko in 1 week. She was given instructions on avoiding heavy lifting for 6 weeks. The patient was given prescription for Percocet 10 and dispense 20 with no refills, Colace 100 mg dispensed 30 with 1 refill, and Iron sulfate 325 mg dispensed 30 with 1 refill. Patient is to continue with her home medications. cc: Grant Alvarez III, MD
== END 2019-04-25 14:35 | disposition home or self-care (01) | DRG 743 ==
LOC: P.ED 15:02 → P.OR 21:41 → P.MEDSURG 23:43
PROVIDERS: ADMIT Obstetrics & Gynecology; ATTEND Obstetrics & Gynecology
CPT/HCPCS: 74176; 76856; 80053; 80074; 80076; 81001; 82150; 82948; 83690; 85025; 87088; 94761; 94799; A9270; J0690; J1100; J1170; J1885; J2270; J2370; J2405; J2543; J7040; J7120; XXXXX